=== PATIENT | male | born 1960 | race American Indian/Alaskan Native ===

== ENCOUNTER 2017-03-30 16:08 | Emergency (ER) | payer OTHER ==
[2017-03-30 16:12] VITALS: BP 162/80; PULSE 94; RESP 18; TEMP 99.1; O2SAT 98
[2017-03-30] MEDS ORDERED: Bacitracin 500 Units/gm Oint Foilpak UD ONE (16:53)
[2017-03-30 16:58] LABS: BASO % 0.6 % (0.0-2.0); EOS # 0.1 K/uL (0.0-0.7); EOS % 3.5 % (0.0-4.0); HEMATOCRIT 43.9 % (35.0-51.0); LYMPH % 28.5 % (20.0-40.0); MEAN CELL VOLUME 91.4 fL (80.0-94.0); MEAN CORPUSCULAR HEMOGLOBIN 30.8 pg (27.0-31.0); MEAN CORPUSCULAR HGB CONC 33.7 g/dL (33.0-37.0); MEAN PLATELET VOLUME 8.7 fL (7.2-11.7); MONO # 0.5 K/uL (0.0-0.8); MONO % 15.8 % (0.0-10.0); NRBC % 0.2 % (0.0-2.0); RED CELL DISTRIBUTION WIDTH 12.4 % (11.5-14.5); WHITE BLOOD COUNT 3.5 K/uL (4.8-10.8)
[2017-03-30 17:06] LABS: CHLORIDE 98 mmol/L (98-107); POTASSIUM 4.2 mmol/L (3.6-5.2); SODIUM 138 mmol/L (132-148)
[2017-03-30 17:08] LABS: GFR AFRICAN-AMERICAN > 60
[2017-03-30 17:09] LABS: BLOOD UREA NITROGEN 17 mg/dL (9-20); CALCIUM 8.7 mg/dl (8.6-10.4); CARBON DIOXIDE 29 mmol/L (22-30); GLUCOSE,RANDOM 104 mg/dL (75-110)
--- NOTE | 2017-03-30 17:52 | C.PDOC ---
History Of Present Illness 56 y/o male presents to the ED with complaints of increasing swelling and redness to wound. Pt sustained laceration to left 2nd finger 4 days ago which has since become red, swollen and with drainage. Pt also reports subjective fever and chills prompting ED visit. Denies weakness, numbness or any other complaints. Time Seen by Provider: 03/30/17 16:40 Chief Complaint (Nursing): Fever History Per: Patient History/Exam Limitations: no limitations Onset/Duration Of Symptoms: Days Current Symptoms Are (Timing): Still Present Sick Contacts (Context): None Associated Symptoms: Fever, Chills Severity: Mild Recent travel outside of the [place]: No Past Medical History Reviewed: Historical Data, Nursing Documentation, Vital Signs Vital Signs: Last Vital Signs Temp 99.1 F 03/30/17 16:12 Pulse 94 H 03/30/17 16:12 Resp 18 03/30/17 16:12 BP 162/80 H 03/30/17 16:12 Pulse Ox 98 03/30/17 19:01 - Medical History PMH: No Chronic Diseases Family History: States: No Known Family Hx - Social History Hx Alcohol Use: No Hx Substance Use: No - Immunization History Hx Tetanus Toxoid Vaccination: No Hx Influenza Vaccination: No Hx Pneumococcal Vaccination: No Review Of Systems Except As Marked, All Systems Reviewed And Found Negative. Constitutional: Positive for: Fever, Chills Skin: Positive for: Other (laceration to left 2nd finger, redness, swelling, drainage) Neurological: Negative for: Weakness, Numbness Physical Exam - Physical Exam Appears: Non-toxic, No Acute Distress Skin: Warm, Dry, No Rash, Other (2 cm open wound to left 2nd MCP with mild swelling and tenderness) Head: Atraumatic, Normacephalic Eye(s): bilateral: Normal Inspection, PERRL, EOMI Oral Mucosa: Moist Extremity: Normal ROM, Capillary Refill (<2 seconds) Neurological/Psych: Oriented x3, Normal Speech, Normal Motor, Normal Sensation Gait: Steady ED Course And Treatment - Laboratory Results Result Diagrams: 03/30/17 16:54 03/30/17 16:54 O2 Sat by Pulse Oximetry: 98 (room air) Pulse Ox Interpretation: Normal Progress Note: Plan: labs, tet/ bacitracin, cleocin, motrin Medical Decision Making Medical Decision Making: The wound has signs of infection will give antibiotics. Patient has no history of diabetes and patient will follow up with either clinic or ED in 2 days for wound check. CBC was normal and there is no indication for admission at this time. Disposition - Disposition Referrals: [facility] [Outside] Disposition: HOME/ ROUTINE Disposition Time: 17:47 Condition: GOOD Additional Instructions: Follow up with the medical doctor within 1-2 days. Return if worsened. 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 - Scribe Statement The provider has reviewed the documentation as recorded by the Scribesme Martinez All medical record entries made by the Scribe were at my direction and personally dictated by me. I have reviewed the chart and agree that the record accurately reflects my personal performance of the history, physical exam, medical decision making, and the department course for this patient. I have also personally directed, reviewed, and agree with the discharge instructions and disposition.
[2017-03-30] MEDS: Bacitracin 500 Units/gm Oint Foilpak UD TOP ONE (18:06)
== END 2017-03-30 18:06 | disposition home or self-care (01) ==
LOC: SUPCPDRO 16:08 → C.ER 16:08
DX: L03.012 Cellulitis of left finger (principal); Z23 Encounter for immunization